=== PATIENT | female | born 1940 | race Caucasian/White ===

== ENCOUNTER 2025-07-31 22:34 | Emergency (ER) | payer MEDICARE, BC, SELFPAY ==
[2025-07-31 22:39] VITALS: BP 148/71
[2025-07-31 22:41] VITALS: BMI 23.7
[2025-07-31 23:00] VITALS: BP 160/71
--- NOTE | 2025-08-01 00:18 | ED.GENMED ---
History of Present Illness
General
Chief Complaint: Musculo-Skeletal Complaint
Time Seen by Provider: 07/31/25 23:44
History of Present Illness
History of Present Illness:
85-year-old female presents for evaluation of a right shoulder injury sustained when she fell while at a restaurant earlier tonight. Fell to the ground but did not strike her head, fall was witnessed by her daughter. She is reporting intense right
shoulder pain. Denies headache or vision changes. Does not take blood thinners.
Review of Systems
Review of Systems
Allergies reviewed?: Yes
All Other Systems: ROS reviewed and negative except as documented in HPI and ROS
Phy Exam
Physical Exam
Physical Exam:
GEN: Well appearing, NAD, WDWN
HEENT: Oral mucosa moist, no scleral icterus
Cardiac: Regular rate
Lung: No respiratory distress, no tachypnea
MSK: Diffuse swelling to the right shoulder with no obvious deformity, right radial pulses strong, sensation intact to the entire right upper extremity
Skin: Good color, no pallor or jaundice, no rashes
Neuro: AO x3, moves all extremities freely
Psych: Calm, cooperative
Course
Orders/Labs/Results
Orders:
Orders
07/31/25 22:48
Shoulder, Right 2 Views [CR Shoulder - Right Min 2 View] Urgent
Comment:
Reason For Exam: fell, c.o right shoulder pain
08/01/25 00:18
Shoulder Immobilizer Right- Tx ONCE
Oxycodone/Acetaminophen [Percocet 5/325] 1 tablet PO NOW STA
08/01/25 00:33
Acetaminophen [Tylenol] 1,000 mg PO NOW STA
Ibuprofen [Motrin] 600 mg PO NOW STA
Vital Signs
Initial and Last Documented VS:
Initial Vital Signs
BP Pulse Ox
148/71 100
07/31/25 22:39 07/31/25 22:39
Last Documented Vital Signs
Temp Pulse Resp BP Pulse Ox
98.8 F 72 18 188/78 96
07/31/25 22:41 08/01/25 00:44 08/01/25 00:44 08/01/25 00:40 08/01/25 00:40
MDM/Problems Addressed
MDM/Problems Addressed:
Patient placed in a sling for right humeral head fracture, outpatient Ortho follow-up advised
*Pulse Oximetry
SaO2: 98
Patient hypoxic: no
*Critical Care Note
Total Time (30-74mins, 75-104mins- exclusive of procedures): Not Applicable
ED Attending Note
-
Portions of this chart may have been created with voice recognition software.� Occasional wrong word or��sound alike� substitutions may have occurred due to the inherent limitations of voice recognition software.
Discharge Plan
Departure
Patient Disposition: Home (Routine Discharge)
Date of Disposition: 08/01/25
Time of Disposition: 00:25
Patient with high blood pressure during this ER visit?: No
Discharge Problem:
Closed fracture of head of right humerus
Instructions: Upper Arm Fracture ED
Prescriptions:
New
hydrocodone-acetaminophen 5-325 mg tablet
1 tab PO Q8H Qty: 6 0RF
No Action
citalopram 40 mg Tablet
40 mg PO DAILY
donepezil 10 mg Tablet
10 mg PO DAILY
acetaminophen 500 mg Tablet
500 mg PO Q6 PRN (Reason: pain)
levothyroxine 75 mcg Tablet
75 mcg PO DAILY
cyanocobalamin (vitamin B-12) 500 mcg Tablet
500 mcg PO DAILY
trazodone 150 mg Tablet
150 mg PO DAILY
ibuprofen 200 mg Tablet
200 mg PO Q6H PRN (Reason: pain)
cholecalciferol (vitamin D3) 125 mcg (5,000 unit) Capsule
125 mcg PO DAILY
memantine 10 mg Tablet
10 mg PO
nitrofurantoin 50 mg Capsule
50 mg PO
Referrals:
SALVADOR, RAY [Other]
Activity Restrictions/Additional Instructions:
See your local orthopedist next week
Use the shoulder immobilizer
Interventions
Interventions:
*Risk Screen - Suicide Last Done: 07/31/25 22:41
*General Assessment Last Done: 07/31/25 22:41
*Neglect/Abuse Screening Last Done: 07/31/25 22:41
*ED- Fall Risk Assessment Last Done: 07/31/25 22:41
*ED COVID-19 Vaccine History Last Done: 07/31/25 22:41
*ED Influenza Vaccine History Last Done: 07/31/25 22:41
*Nursing Disposition Last Done: 08/01/25 00:44
ED-Musculoskeletal Assessment Last Done: 07/31/25 22:41
Discharge Date and Time
Discharge Date/Time: 08/01/25 00:55
Print Language: [id number]
[2025-08-01] MEDS: TYLENOL 1000 MG PO (00:37)
[2025-08-01] MEDS: MOTRIN 600 MG PO (00:37)
[2025-08-01 00:40] VITALS: BP 188/78
== END 2025-08-01 00:55 | disposition home or self-care (01) ==
LOC: EMR 22:34
PROVIDERS: EMERGENCY PHYSICIAN Emergency Medicine
DX: S42.291A Other displaced fracture of upper end of right humerus, initial encounter for closed fracture (principal); W19.XXXA Unspecified fall, initial encounter
CPT/HCPCS: 99283; 73030